=== PATIENT | male | born 1960 | race Caucasian/White ===

== ENCOUNTER → 2023-01-10 | Day surgery (SDC) | payer BC ==
[~2023-01-10] MED LIST: ACETAMINOPHEN 1000 MG/100 ML 100 ML IV ONE; ACETAMINOPHEN325 M1 PO; CEFAZOLIN SODIUM 2 GM ONE; CYCLOBENZAPRINE HCL 10 MG TAB PO ONE; HYDROCODONE/APAP 10MG-325MG TAB ONE; HYDROCODONE/APAP 10MG-325MG TAB PO ONE; KETOROLAC TROMETHAMINE 30 MG/ML VIAL ONE; LACTATED RINGER'S 1,000 ML ONE; LIDOCAINE HCL 2% LOCAL INJ 5 ML SDV VIAL INJ ONE; MELOXICAM7.5 MG PO; POVIDONE IODINE 0.05% 0.05 % ML PO ONE; PROPOFOL IV EMULSION 10 MG/ML 20 ML VIAL ONE; ROPIVACAINE 0.5% 5 MG/ML 30 ML SDV ONE
[2023-01-10] MEDS: FENTANYL CITRATE/PF 100MCG/2 ML INJ ONE ×4 (07:29→07:44)
[2023-01-10 08:10] VITALS: BP 134/77; PULSE 71; RESP 14; O2SAT 97
== END | disposition home or self-care (01) ==
LOC: OR 06:45 → EDSEX 10:00
PROVIDERS: ATTEND Orthopaedic Surgery
DX: M24.661 Ankylosis, right knee (principal); Z96.651 Presence of right artificial knee joint; M17.11 Unilateral primary osteoarthritis, right knee; F32.A Depression, unspecified; Z01.810 Encounter for preprocedural cardiovascular examination; Z79.1 Long term (current) use of non-steroidal anti-inflammatories (NSAID)
CPT/HCPCS: 27570; 93005; J0131; J1885; J2001; J2704; J2795; J3010; J7121